=== PATIENT | male | born 1985 | race Caucasian/White ===

== ENCOUNTER 2021-10-06 21:11 | Emergency (ER) | payer OTHER ==
[2021-10-06] MEDS ORDERED: FUROSEMIDE 10 MG/ML 4 ML VIAL IV STA (21:45)
--- NOTE | 2021-10-06 22:26 | XR ---
EXAMINATION TYPE: XR chest 2V DATE OF EXAM: 10/06/2021 COMPARISON: NONE HISTORY: Cough TECHNIQUE: 2 views FINDINGS: Heart and mediastinum are normal. Lungs are clear. Diaphragm is normal. Bony thorax appears normal. IMPRESSION: Normal chest
[2021-10-06] MEDS ORDERED: AZITHROMYCIN 500 MG TAB PO STA (23:04)
--- NOTE | 2021-10-06 23:05 | ED ---
General Adult HPI - General Chief complaint: Upper Respiratory Infection Stated complaint: Cough Time Seen by Provider: 10/06/21 21:41 Source: patient, RN notes reviewed, old records reviewed Mode of arrival: ambulatory - History of Present Illness Initial comments: Patient is a 36-year-old male with no significant past medical history presents emergency department over concern for upper respiratory illness. Has been having a nonproductive cough for multiple days. Concern he may have an infection. Was not vaccinated for Covid. Was not vaccinated for influenza. His no known sick contacts. Denies fevers, abdominal pain, nausea, vomiting. Denies chest pain. His no other acute complaint at this time. - Related Data Previous Rx's Medication Instructions Recorded Azithromycin [Zithromax] 250 mg PO DAILY 4 Days #4 tab 10/06/21 Allergies Allergy/AdvReac Type Severity Reaction Status Date / Time No Known Allergies Allergy Verified 10/06/21 21:34 Review of Systems ROS Statement: Those systems with pertinent positive or pertinent negative responses have been documented in the HPI. Review of Systems: CONST: Denies fever EYES: Denies blurry vision ENT: Endorses nasal congestion C/V: Denies Chest pain RESP: Denies shortness of breath GI: Denies abdominal pain : Denies dysuria SKIN: Denies rash. MSK: Denies joint pain. NEURO: Denies headache ROS Other: All systems not noted in ROS Statement are negative. Past Medical History Additional Past Medical History / Comment(s): liver issues as a child but no problems History of Any Multi-Drug Resistant Organisms: None Reported Past Surgical History: No Surgical Hx Reported Past Psychological History: Anxiety, Depression Smoking Status: Vaper Past Alcohol Use History: None Reported Past Drug Use History: None Reported General Exam - General Exam Comments Initial Comments: General: Appears in no acute distress. HEAD: Normal with no signs of head trauma. EYES: PERRLA, EOMI, conjunctiva normal, no discharge. ENT: Hearing grossly intact, normal oropharynx. RESPIRATORY: Clear breath sounds bilaterally. No wheezes, rales, or rhonchi. Not hypoxic. No increased work of breathing. C/V: Regular rate and rhythm. S1 and S2 auscultated, no edema, peripheral pulses 2+ and intact throughout ABD: Abd is soft, nontender, nondistended EXT: Normal range of motion, no obvious deformity SKIN: No rashes or lesions observed on exposed skin. NEURO: Alert and oriented 4. Course Vital Signs 10/06/21 21:30 Temperature 98.7 F Pulse Rate 114 H Respiratory 19 Rate Blood Pressure 150/95 O2 Sat by Pulse 98 Oximetry Medical Decision Making - Medical Decision Making Based on the patient's presentation and physical exam, I'm concerned for possible upper respiratory illness for the patient. We will obtain viral swabs as well as chest x-ray. He was in agreement this plan. Vital signs are within normal limits. COVID-19 flu testing are negative. Chest x-ray shows no cardiopulmonary process. On reevaluation, I discussed with the patient results of imaging and labs. He remains within normal limits and states that this time. I believe it is safe for him to be discharged home. He will be started on a azithromycin. He was in agreement with the plan. He'll receive the first dose in the department. I will provide the patient with a prescription for azithromycin. I instructed the patient to follow up with their PCP in the next 3 days. . I explained that the patient should return to the emergency department if they experience any worsening symptoms. Strict return precautions were discussed with the patient. The patient expressed understanding of these instructions. I answered all questions that the patient had. The patient was discharged home in good condition with their prescriptions and follow up information. - Lab Data Lab Results 10/06/21 10/06/21 Range/Units 22:14 22:14 Coronavirus (PCR) Not Detected (Not Detectd) Influenza Type A RNA Not Detected (Not Detectd) Influenza Type B (PCR) Not Detected (Not Detectd) Disposition Clinical Impression: URI (upper respiratory infection) Disposition: HOME SELF-CARE Condition: Good Instructions (If sedation given, give patient instructions): Upper Respiratory Infection (ED) Prescriptions: Azithromycin [Zithromax] 250 mg PO DAILY 4 Days #4 tab Is patient prescribed a controlled substance at d/c from ED?: No Referrals: None,Stated [Primary Care Provider] - 1-2 days Eva Corrales MD [REFERRING] - 1-2 days Time of Disposition: 22:55
[2021-10-06 23:14] VITALS: BP 121/65; PULSE 98; RESP 18; TEMP 98
== END 2021-10-06 23:15 | disposition home or self-care (01) ==
LOC: EC 21:11
DX: J06.9 Acute upper respiratory infection, unspecified (principal); Z20.822 Contact with and (suspected) exposure to COVID-19; F17.290 Nicotine dependence, other tobacco product, uncomplicated
CPT/HCPCS: 71046; 87502; 87635; 99283

== ENCOUNTER 2021-10-21 16:48 | Emergency (ER) | payer OTHER ==
[2021-10-21 16:57] VITALS: BP 147/90; PULSE 114; RESP 20; TEMP 100.2
[2021-10-21] MEDS ORDERED: ONDANSETRON 4 MG ODT STARTER PACK 2 TAB BTL PO STA (21:19)
--- NOTE | 2021-10-21 21:21 | ED ---
Nausea/Vomiting/Diarrhea HPI - General Chief complaint: Nausea/Vomiting/Diarrhea Stated complaint: flu exposure/symptoms Time Seen by Provider: 10/21/21 20:46 Source: patient Mode of arrival: ambulatory Limitations: no limitations - History of Present Illness Initial comments: 36-year-old male with no past medical history presents emergency department with nausea, vomiting and diarrhea since yesterday. Reports that his girlfriend has had similar symptoms that she tested positive for influenza a. Patient has been able to eat and drink. States drink a whole case of Gatorade. He has remained persistently nauseated with several episodes of diarrhea. No muscle aches. Denies chest pain, chills or cough. No abdominal pain. Denies black or bloody stools. He has not been using any medications at home for her symptoms. No alleviating, precipitating or modifying factors - Related Data Previous Rx's Medication Instructions Recorded Azithromycin [Zithromax] 250 mg PO DAILY 4 Days #4 tab 10/06/21 Ondansetron Odt [Zofran Odt] 4 mg PO Q8HR PRN #20 tab 10/21/21 Allergies Allergy/AdvReac Type Severity Reaction Status Date / Time No Known Allergies Allergy Verified 10/21/21 16:56 Review of Systems ROS Statement: Those systems with pertinent positive or pertinent negative responses have been documented in the HPI. ROS Other: All systems not noted in ROS Statement are negative. Past Medical History Additional Past Medical History / Comment(s): liver issues as a child but no problems History of Any Multi-Drug Resistant Organisms: None Reported Past Surgical History: No Surgical Hx Reported Past Psychological History: Anxiety, Depression Smoking Status: Vaper Past Alcohol Use History: None Reported Past Drug Use History: None Reported General Exam Limitations: no limitations Course Vital Signs 10/21/21 16:54 Temperature 100.2 F H Pulse Rate 114 H Respiratory 20 Rate Blood Pressure 147/90 O2 Sat by Pulse 97 Oximetry Medical Decision Making - Medical Decision Making Upon arrival patient is placed in room 12. A thorough history and physical exam was performed. Patient was swabbed in triage and does test positive for influenza. Patient does make it back to room and I do evaluate the patient. I recommended IV for fluid administration hours patient refused IV at this time. I discussed treatment with Tamiflu however patient refused Tamiflu. Patient is given a Zofran starter pack. Instructed to take Zofran for any nausea. Increase fluid intake. Follow up with his doctor to 4 days. Return for any new or worsening symptoms. Patient agreed and she will plan and was discharged home in stable condition - Lab Data Lab Results 10/21/21 Range/Units 19:48 Influenza Type A (PCR) Detected A (Not Detectd) Influenza Type B (PCR) Not Detected (Not Detectd) RSV (PCR) Not Detected (Not Detectd) SARS-CoV-2 (PCR) Not Detected (Not Detectd) Disposition Clinical Impression: Influenza A, Nausea & vomiting Disposition: HOME SELF-CARE Condition: Stable Instructions (If sedation given, give patient instructions): Influenza (ED) Additional Instructions: Alternates taking Motrin and Tylenol every 4 hours. Use Zofran for nausea. Increase fluid intake. Return to the emergency room for any new or worsening symptoms Prescriptions: Ondansetron Odt [Zofran Odt] 4 mg PO Q8HR PRN #20 tab PRN Reason: Nausea Is patient prescribed a controlled substance at d/c from ED?: No Referrals: None,Stated [Primary Care Provider] - 1-2 days Time of Disposition: 21:21
== END 2021-10-21 21:45 | disposition home or self-care (01) ==
LOC: EC 16:48
DX: J10.1 Influenza due to other identified influenza virus with other respiratory manifestations (principal); F41.9 Anxiety disorder, unspecified; F32.A Depression, unspecified; F17.290 Nicotine dependence, other tobacco product, uncomplicated; Z20.822 Contact with and (suspected) exposure to COVID-19
CPT/HCPCS: 87636; 99284

== ENCOUNTER 2021-10-24 20:44 | Emergency (ER) | payer SELFPAY ==
[2021-10-24 21:16] VITALS: BP 135/69; PULSE 95; RESP 18; TEMP 98.2
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
[2021-10-24] MEDS ORDERED: DIPH,PERTUS(ACELL)TETVAC-LF 0.5 ML VIAL IM ONE (23:00)
[2021-10-24] MEDS ORDERED: LIDOCAINE 1% INJ 10MG/ML (5 ML VIAL-PF) SQ ONE (23:00)
[2021-10-24] MEDS ORDERED: IBUPROFEN 800 MG TAB PO STA (23:00)
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
== END 2021-10-24 23:37 | disposition home or self-care (01) ==
LOC: EC 20:44
DX: S01.01XA Laceration without foreign body of scalp, initial encounter (principal); S60.222A Contusion of left hand, initial encounter; F17.290 Nicotine dependence, other tobacco product, uncomplicated; Z23 Encounter for immunization; Y04.0XXA Assault by unarmed brawl or fight, initial encounter
CPT/HCPCS: 99284; 90471; 12001; 73130; 70450; 90715; J2001